=== PATIENT | male | born 1975 | race Caucasian/White ===

== ENCOUNTER 2025-01-21 10:04 | Emergency (ER) | payer OTHER, SELFPAY ==
[2025-01-21 10:22] VITALS: BP 126/78; PULSE 104; RESP 18; TEMP 37.3; O2SAT 94; BMI 25.7
--- NOTE | 2025-01-21 10:30 | XR_ITS ---
CLINICAL INDICATION: cough, and flulike symptoms for several days TECHNIQUE: XR chest 2V Exam date and time: 01/21/2025, 11:00 a.m. COMPARISON: None. FINDINGS: The cardiomediastinal silhouette is within normal limits. Mildly coarse interstitial lung markings are present bilaterally, along with peribronchial cuffing, suggestive of bronchitis/pneumonitis/viral pneumonia but otherwise there is no evidence for airspace consolidation. No mass. No pleural effusion or pneumothorax. No acute osseous abnormality detected. IMPRESSION: Bilateral pulmonary findings are most suggestive of acute viral infection (pneumonia/pneumonitis and bronchitis). No airspace consolidation or pleural effusion. - This report was generated utilizing speech recognition software. -
--- NOTE | 2025-01-21 10:32 | PD.EDRME ---
Rapid Medical Screening Exam RME Arrival date/time: 01/21/25 10:04 50-year-old male with medical history as can for hypertension, hypercholesterolemia, bipolar presents Emergency Department today for complaints of fever as high as 102 cough generalized bodyaches and flulike symptoms Chief Complaint: Flu Like Symptoms Vital signs: Vital Signs Temperature 99.1 F 01/21/25 10:22 Pulse Rate 104 H 01/21/25 10:22 Respiratory Rate 18 01/21/25 10:22 Blood Pressure 126/78 01/21/25 10:22 Pulse Oximetry (%) 94 L 01/21/25 10:22 Oxygen Delivery Method Room Air 01/21/25 10:22 Exam: On exam patient well-appearing patient does not appear ill or toxic Clinical Impression: Lab work and imaging ordered
[2025-01-21 11:11] LABS: Lactate (Lactic Acid) 1.2 mMol/L (0.4-2.0)
[2025-01-21 11:15] LABS: Influenza A Ag Negative; Influenza B Ag Negative
[2025-01-21 11:18] LABS: Basophils # (Auto) 0.0 Thou/mm3 (0.0-0.2); Basophils % (Auto) 0 % (0-2.5); Eosinophils # (Auto) 0.0 Thou/mm3 (0.0-0.5); Eosinophils % (Auto) 0 % (0-10); Hematocrit 34.7 % (41.0-53.0); Hemoglobin 12.4 g/dL (13.5-16.0); Immature Granulocytes Auto 0.03 Thou/mm3 (0.00-0.00); Lymphocytes # (Auto) 0.9 Thou/mm3 (1.0-4.8); Lymphocytes % (Auto) 11 % (10-50); Mean Corpuscular HGB Conc 35.7 g/dl (31.0-37.0); Mean Corpuscular Hemoglobin 31.3 pg (25.0-35.0); Mean Corpuscular Volume 88 fL (80-100); Monocytes # (Auto) 1.2 Thou/mm3 (0.0-0.8); Monocytes % (Auto) 14 % (0-12); Neutrophils # (Auto) 6.1 Thou/mm3 (1.8-7.7); Neutrophils % (Auto) 74 % (37-80); Nucleated Red Blood Cell # 0.00 Thou/mm3 (0.00-0.00); Nucleated Red Blood Cell % 0 /100 WBC (0); Platelet Count 173 Thou/mm3 (140-440); RDW Standard Deviation 40.8 fL (35.1-43.9); Red Blood Count 3.96 Miln/mm3 (4.50-5.90); White Blood Count 8.3 Thou/mm3 (3.8-10.6)
[2025-01-21 11:40] LABS: Alanine Aminotransferase 51 U/L (10-49); Albumin, Serum 4.4 gm/dL (3.5-5.0); Albumin/Globulin Ratio 1.3 (1.2-2.2); Alkaline Phosphatase 49 U/L (46-116); Anion Gap 9 (7-16); Aspartate Amino Transferase 51 U/L (0-34); BUN/Creatinine Ratio 8 Ratio (12-20); Bilirubin,Total 0.6 mg/dL (0.3-1.2); Blood Urea Nitrogen 6 mg/dL (9-23); Calcium 9.2 mg/dL (8.3-10.6); Calcium (Corrected) 9.2 mg/dL (8.5-10.1); Carbon Dioxide 26.5 mMol/L (20.0-31.0); Chloride 92 mMol/L (98-107); Creatinine (Component) 0.8 mg/dL (0.6-1.3); Estimated Creatinine Clearance 129.9 mL/min (>60); Globulin 3.3 gm/dL (2.3-3.5); Glucose 95 mg/dL (74-106); Osmolality,Calculated 252 (275-295); Potassium 4.1 mMol/L (3.4-5.1); Procalcitonin 0.59 ng/ml (0.0-0.49); Sodium 127 mMol/L (136-145); Total Protein 7.7 gm/dL (5.7-8.2); eGFR > 60 See Note
[2025-01-21 12:00] LABS: Collection Type, Urine Clean Catch
[2025-01-21 12:13] LABS: Bacteria,Urine Rare; Bilirubin,Urine Negative (Negative); Blood,Urine Trace (Negative); Clarity,Urine Clear (Clear/Hazy); Color,Urine Lt-Yellow (Lt Yel-Yel); Glucose, Urine Negative (Negative); Ketones,Urine 1+ (Negative); Leukocyte Esterase,Urine Negative (Negative); Nitrite,Urine Negative (Negative); PH,Urine 7.5 (5.0-7.0); Protein,Urine Negative (Neg - Trace); RBC,Urine 5 /hpf (0-3); Specific Gravity,Urine 1.013 (1.001-1.035); Squamous Epithelial Cell,Urine < 1 /hpf (0-5); Urobilinogen,Urine Negative mg/dL (0.0-1.0); WBC,Urine 3 /hpf (0-5)
--- NOTE | 2025-01-21 15:17 | EDNOTE_ITS ---
<Statement entered by Carol Stephenson MD - 01/22/25 09:36> As co-signing physician, I was present and available for consult prn. I concur with the plan and care as documented by the midlevel provider. 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 OTC medicines not helping. RME / HPI RME / HPI narrative: 01/21/25 10:04 50-year-old male with medical history as can for hypertension, hypercholesterolemia, bipolar presents Emergency Department today for complaints of fever as high as 102 cough generalized bodyaches and flulike symptoms Exam: On exam patient well-appearing patient does not appear ill or toxic Impression: Lab work and imaging ordered Related Data Home Medications ?Medication ?Instructions ?Recorded ?Confirmed divalproex 500 mg tablet,delayed 1,000 mg PO BID #0 ta bs 04/10/17 release (Depakote) etanercept 50 mg/mL (1 mL) 50 mg subcut Q7D #0 ea 03/21 05/07 subcutaneous syringe (Enbrel) Previous Rx's ?Medication ?Instructions ?Recorded Amox Tr/Potassium Clavulanate * 1 tab PO BID #20 tabs 04/10/17 (AUGMENTIN 875/125 *) amoxicillin 875 mg-potassium 1 tab PO BID #14 tabs 07/12 clavulanate 125 mg tablet oseltamivir 75 mg capsule (Tamiflu) 75 mg PO QDAY #7 c aps 01/21/25 prednisone 20 mg tablet See Taper PO BID 3 days #6 t abs 01/21/25 Review of Systems Review of Systems Narrative Review of Systems: GEN: + fever, no chills, no weight loss EYES: No discharge, no visual changes, no pain HEENT: No ear pain, no congestion, no sore throat PULM: No shortness of breath, + cough, no congestion CV: No chest pain, no dyspnea on exertion, no palpitations GI: No nausea, no vomiting, no diarrhea, no pain, no constipation : No frequency, no urgency, no dysuria MUSC/SKEL: No joint pain, no back pain SKIN: No rash PSYCH: No hallucinations, no depression HEME/LYMPH: No easy bleeding or bruising tendencies NEURO: No weakness, no headache Past Medical History Social History SMOKING STATUS: Current every day smoker ED Exam Narrative Physical exam: [General: Not in any acute distress Head normocephalic HEENT: Eyes pupils are PERRLA EOMs are intact mouth pink moist membranes uvula is midline swallow symmetrical all other subsystems HEENT are within acceptable limits Neck is supple nontender no JVD no edema no LAD Chest equal chest rise nontender to palpation Respiratory: Clear to auscultation no wheezes crackles or rubs CV: Rate rhythm is regular no murmurs rubs or clicks Abdomen is soft nontender no masses positive bowel sounds all 4 quadrants Back: No CVA tenderness no spinous process tenderness from cervical spine thoracic and lumbar spine Skin: Intact no petechiae rash induration ulceration or crepitus Extremities: Moving all extremity against resistance cap refill less than 2 seconds neurosensory intact Neuro: Awake alert oriented x3 Glascow coma 15 no focal deficits] Course Quality Measures none Orders Category Date Time Status Bedside COVID-19 Antigen Test NOW Care 01/21/25 10:30 Active XR chest 2V Stat Exams 01/21/25 10:30 Completed Blood Culture (Lab) Stat Lab 01/21/25 10:54 Received CBC Stat Lab 01/21/25 10:50 Completed Comprehensive Metabolic Panel Stat Lab 01/21/25 10:50 Completed FLU A&B [Influenza A & B Rapid Panel] Stat Lab 01/21/25 10:35 Completed Lactate (Lactic Acid) Stat Lab 01/21/25 10:50 Completed Procalcitonin Stat Lab 01/21/25 10:50 Completed Urinalysis Stat Lab 01/21/25 11:20 Completed Urine Culture Stat Lab 01/21/25 11:20 Received Vital Signs Vital signs: Vital Signs Temperature 99.1 F 01/21/25 10:22 Pulse Rate 104 H 01/21/25 10:22 Respiratory Rate 18 01/21/25 10:22 Blood Pressure 126/78 01/21/25 10:22 Pulse Oximetry (%) 94 L 01/21/25 10:22 Oxygen Delivery Method Room Air 01/21/25 10:22 Discharge Plan Plan Patient Disposition: HOME (Self Care) Patient condition on transfer: Stable Prescriptions/Referrals Prescriptions/Med Rec: New amoxicillin-pot clavulanate 875-125 mg tablet 1 tab PO BID Qty: 14 0RF prednisone 20 mg tablet See Taper PO BID 3 Days Qty: 6 0RF Taper: Prednisone Taper 20 mg DAILY for 2 Days and 0 Hour 10 mg DAILY for 2 Days and 0 Hour 5 mg DAILY for 7 Days and 0 Hour oseltamivir [Tamiflu] 75 mg capsule 75 mg PO QDAY Qty: 7 0RF No Action divalproex [Depakote] 500 MG tablet,delayed release (DR/EC) 1,000 mg PO BID Qty: 0 etanercept [Enbrel] 50 MG/ML syringe 50 mg Sub-Q Q7D Qty: 0 Amox Tr/Potassium Clavulanate * (AUGMENTIN 875/125 *) 1 TAB tablet 1 tab PO BID Qty: 20 0RF Rx Instructions: use for 10 days Referrals: Kaela Daely, S[facility] CONSULTANT [Primary Care Provider] - In 1 week Problem List Clinical Impression: Pneumonia, Cough Patient/Caregiver Discharge Instructions Other Activity Instructions:: Take ibuprofen or Tylenol [id number] every 8 hours for the next 3 days. Take all the medications prescribed to the compl etely gone. If there is worsening of symptoms in spite of the medications return the emergency room mainly for further evaluation. Education Materials: ED Pneumonia (Adult) Print Language: R[place] Stand Alone Forms: Karolyn Award Info., Patient Portal Info Letter, Work/School Release PA/REED FIXER Supervising Physician PA/REED FIXER Supervising Physician: Daniel Duran ENP [facility] Clinical Information Provided by: patient Medical Records reviewed [facility] Meds/Rx considered, not ordered None Labs/Rad/Tests considered, not ordered None Chronic Illness/Social Conditions which may negatively complicate care or outcome(s)-explain: None or not applicable EKG EKG not done Labs Labs: interpreted by [place] Lab(s) Interpretation(s): CBC shows no acute leukocytosis mild anemia no thrombocytopenia CMP shows a sodium 127 chloride of 92 BUN of 6 no other electrolyte imbalances renal impairment transaminitis or T. bili elevation Lactic acid 1.2 Pro-Cain at 0.59. Urine is negative for UTI Influenza is negative COVID is negative. Imaging Imaging Interpretation(s): Perihilar infiltrates on the chest x-ray Medication Administration(s) none Diagnosis Differential Diagnosis ED Complaint MDM: Pneumonia viral syndrome URI
== END 2025-01-21 15:37 | disposition home or self-care (01) ==
PROVIDERS: Nurse Practitioner Primary Care; Emergency Provider Emergency Medicine; PCP Nurse Practitioner Primary Care
DX: J18.9 Pneumonia, unspecified organism (principal)
CPT/HCPCS: 36415; 71046; 80053; 81001; 83605; 84145; 85025; 87040; 87086; 87502; 87635; 99283